=== PATIENT | male | born 1950 | race Caucasian/White ===

== ENCOUNTER 2020-10-31 17:12 | Inpatient (IN) | payer OTHER ==
[2020-10-31 17:24] VITALS: BMI 24.9
[2020-10-31] MEDS ORDERED: LORazepam 1 MG TABLET PO ONE (18:32)
[2020-10-31] MEDS ORDERED: THIAMINE HCL 100 MG TABLET (FP) PO ONE (18:33)
[2020-10-31] MEDS ORDERED: DIPHTH,PERTUSS(ACELL),TET 0.5 ML DISP.SYRIN IM ONE ×2 (18:33→19:35)
[2020-10-31] MEDS ORDERED: diazePAM CARPU-JECT 10 MG/2 ML DISP.SYRIN IVPUSH ONE (18:39)
[2020-10-31 19:28] LABS: BASO % 0.7 % (0-2.0); EOS % 0.1 % (0-4.5); HEMATOCRIT 39.8 % (35.4-49); HEMOGLOBIN 13.3 GM/dL (11.7-16.9); LYMPH % 7.6 % (8-40); MCH 33.6 pg (25.7-33.7); MCHC 33.3 g/dl (32.0-35.9); MEAN CELL VOLUME 100.8 fl (80-96); MONO % 12.7 % (3.8-10.2); NEUT % 78.9 % (42.8-82.8); RBC 3.95 M/mm3 (4.00-5.60); RDW 14.5 % (11.9-15.9); WHITE BLOOD COUNT 5.2 K/mm3 (4.0-10.0)
[2020-10-31] MEDS ORDERED: THIAMINE HCL 100 MG TABLET (FP) ONE (19:35)
[2020-10-31] MEDS ORDERED: diazePAM CARPU-JECT 10 MG/2 ML DISP.SYRIN ONE (19:35)
[2020-10-31 19:38] LABS: INR 0.94 (0.83-1.09); PROTHROMBIN TIME (PATIENT) 11.4 SEC (9.7-13.0)
[2020-10-31 19:40] LABS: ACTIVATED PTT 26.5 SECONDS (25.2-36.5)
[2020-10-31 19:46] LABS: CHLORIDE 96 mmol/L (98-107); SODIUM 133 mmol/L (136-145)
[2020-10-31 19:48] LABS: ALBUMIN 4.1 g/dl (3.4-5.0); ANION GAP 5 MMOL/L (8-16); BLOOD UREA NITROGEN 21.5 mg/dL (7-18); CALCIUM 10.1 mg/dL (8.5-10.1); CO2 32 mmol/L (21-32); GLUCOSE,RANDOM 101 mg/dL (74-106)
[2020-10-31 19:51] LABS: SGOT/AST 307 U/L (15-37); SGPT/ALT 154 U/L (13-61)
[2020-10-31 19:53] LABS: BILIRUBIN,TOTAL 2.8 mg/dL (0.2-1)
[2020-10-31 19:54] LABS: ALK PHOS 92 U/L (45-117)
[2020-10-31] MEDS ORDERED: chlordiazePOXIDE HCL 25 MG CAPSULE PO ONE (20:53)
[2020-10-31] MEDS ORDERED: chlordiazePOXIDE HCL 25 MG CAPSULE ONE (21:10)
[2020-10-31] MEDS ORDERED: LORazepam 2 MG/ML SDV VIAL IVPUSH ONE (22:45)
[2020-10-31] MEDS ORDERED: LORazepam 2 MG/ML SDV VIAL ONE (22:47)
[2020-11-01] MEDS ORDERED: LORazepam 2 MG/ML SDV VIAL IVPUSH ONE (00:39)
[2020-11-01] MEDS ORDERED: LORazepam 1 MG TABLET PO PRN ×2 (02:32→11:54)
[2020-11-01] MEDS ORDERED: FOLIC ACID INJECTION - 1 MG, THIAMINE HCL 100 MG, MULTIVIT INJECTION ADULT 10 ML in SOD... IVPB ONE (02:36)
[2020-11-01 04:25] LABS: EPI CELLS 10 /uL (0-25.1); HYALINE CASTS 3 /uL (0-3.1); URINE APPEARANCE CLEAR; URINE BILIRUBIN 2+ (NEGATIVE); URINE COLOR ORANGE; URINE GLUCOSE (UA) NEGATIVE (NEGATIVE); URINE KETONE 1+ (NEGATIVE); URINE LEUK ESTERASE 1+ (NEGATIVE); URINE NITRITE POSITIVE (NEGATIVE); URINE PROTEIN 1+ (NEGATIVE); URINE RBC 36 /uL (0-23.9); URINE WBC 4 /uL (0-25.8)
[2020-11-01 04:31] LABS: COCAINE, UR NEGATIVE ng/ml (CUTOFF=300); METHADONE, UR NEGATIVE ng/ml (CUTOFF=300); OPIATES, URI NEGATIVE ng/ml (CUTOFF=300); PHENCYCLIDINE,URINE NEGATIVE ng/ml (CUTOFF=25); URINE AMPHETAMINES NEGATIVE ng/ml (CUTOFF=500); URINE BARBITURATES NEGATIVE ng/ml (CUTOFF=200)
[2020-11-01 04:54] LABS: URINE BENZODIAZEPINES POSITIVE ng/ml (CUTOFF=200)
[2020-11-01] MEDS ORDERED: LORazepam 1 MG TABLET PO SCH (05:00)
[2020-11-01 06:54] LABS: BASO % 1.2 % (0-2.0); EOS % 0.7 % (0-4.5); HEMATOCRIT 37.1 % (35.4-49); HEMOGLOBIN 12.6 GM/dL (11.7-16.9); LYMPH % 15.5 % (8-40); MCH 33.9 pg (25.7-33.7); MEAN CELL VOLUME 99.7 fl (80-96); NEUT % 66.6 % (42.8-82.8); PLATELET COUNT 64 K/MM3 (134-434); RBC 3.73 M/mm3 (4.00-5.60); RDW 14.4 % (11.9-15.9); WHITE BLOOD COUNT 4.6 K/mm3 (4.0-10.0)
[2020-11-01 07:14] LABS: ALBUMIN 3.7 g/dl (3.4-5.0); CALCIUM 9.3 mg/dL (8.5-10.1); MAGNESIUM 1.7 mg/dL (1.8-2.4)
[2020-11-01 07:18] LABS: CREATININE 0.7 mg/dL (0.55-1.3)
[2020-11-01 07:19] LABS: BILIRUBIN,TOTAL 2.5 mg/dL (0.2-1); PHOSPHOROUS 2.4 mg/dL (2.5-4.9); TOT PROT 7.2 g/dl (6.4-8.2)
[2020-11-01] MEDS ORDERED: THIAMINE HCL 200 MG/2 ML VIAL ONE (11:44)
[2020-11-01] MEDS ORDERED: LORazepam 2 MG/ML SDV VIAL ONE (11:45)
[2020-11-01] MEDS ORDERED: FAMOTIDINE 20 MG/50 ML IVPB 20 MG/50 ML MG IVPB ONE ×2 (12:00→16:45)
[2020-11-01] MEDS ORDERED: ONDANSETRON 4 MG/2 ML VIAL IM PRN (12:01)
[2020-11-01] MEDS: LORazepam 2 MG/ML SDV VIAL IVPUSH PRN (12:52)
[2020-11-01] MEDS: SODIUM CHLORIDE 1,000 ML IV SCH (14:00)
[2020-11-01] MEDS: THIAMINE HCL 200 MG/2 ML VIAL IVPB SCH (16:41)
[2020-11-01] MEDS: FOLIC ACID 1 MG TABLET (FP) PO SCH (16:41)
[2020-11-01] MEDS: LORazepam 1 MG TABLET PO SCH ×2 (18:02→22:24)
[2020-11-02] MEDS ORDERED: LORazepam 1 MG TABLET PO SCH (05:00)
[2020-11-02] MEDS: LORazepam 1 MG TABLET PO SCH ×4 (05:11→23:33)
[2020-11-02] MEDS ORDERED: POTASSIUM CHLORIDE ORAL LIQUID 20 MEQ/15 ML PO ONE (08:30)
[2020-11-02] MEDS ORDERED: SODIUM PHOSPHATE - 15 MM in SODIUM CHLORIDE 250 ML IVPB ONE (09:00)
[2020-11-02] MEDS: FOLIC ACID 1 MG TABLET (FP) PO SCH (10:42)
[2020-11-02] MEDS: THIAMINE HCL 200 MG/2 ML VIAL IVPB SCH (10:43)
[2020-11-02 19:59] LABS: BASO % 1.8 % (0-2.0); EOS % 3.7 % (0-4.5); HEMATOCRIT 34.5 % (35.4-49); HEMOGLOBIN 11.5 GM/dL (11.7-16.9); LYMPH % 17.3 % (8-40); MCH 33.5 pg (25.7-33.7); MCHC 33.2 g/dl (32.0-35.9); MEAN PLT VOLUME 10.9 fl (7.5-11.1); MONO % 17.9 % (3.8-10.2); NEUT % 59.3 % (42.8-82.8); PLATELET COUNT 68 K/MM3 (134-434); RBC 3.42 M/mm3 (4.00-5.60); WHITE BLOOD COUNT 4.2 K/mm3 (4.0-10.0)
[2020-11-02 20:07] LABS: HEP B CORE AB, TOT Negative (Negative)
[2020-11-02 20:18] LABS: CALCIUM 8.1 mg/dL (8.5-10.1)
[2020-11-02 20:19] LABS: BLOOD UREA NITROGEN 15.2 mg/dL (7-18); MAGNESIUM 1.7 mg/dL (1.8-2.4)
[2020-11-02 20:21] LABS: PHOSPHOROUS 4.3 mg/dL (2.5-4.9)
[2020-11-02 20:22] LABS: CREATININE 0.5 mg/dL (0.55-1.3)
[2020-11-02 20:23] LABS: TOT PROT 6.1 g/dl (6.4-8.2)
[2020-11-02 20:26] LABS: BILIRUBIN,TOTAL 1.1 mg/dL (0.2-1)
[2020-11-02] MEDS ORDERED: MAGNESIUM SULF 50% (8.12 MEQ/2 ML-1 GM VIAL) IVPB ONE (21:49)
[2020-11-02] MEDS: KCL 10 MEQ IVPB 10 MEQ/100 ML INFUS.BAG IVPB SCH ×2 (22:03→23:04)
[2020-11-03] MEDS ORDERED: LORazepam 0.5 MG TABLET PO PRN
[2020-11-03] MEDS: LORazepam 2 MG/ML SDV VIAL IVPUSH PRN (03:43)
[2020-11-03] MEDS ORDERED: LORazepam 0.5 MG TABLET PO SCH (05:00)
[2020-11-03] MEDS: LORazepam 1 MG TABLET PO SCH ×4 (06:14→22:04)
[2020-11-03] MEDS: SODIUM CHLORIDE 1,000 ML IV SCH (09:13)
[2020-11-03 09:23] LABS: BASO % 1.4 % (0-2.0); EOS % 2.5 % (0-4.5); HEMATOCRIT 35.9 % (35.4-49); HEMOGLOBIN 12.1 GM/dL (11.7-16.9); MCH 34.2 pg (25.7-33.7); MCHC 33.8 g/dl (32.0-35.9); MEAN CELL VOLUME 101.1 fl (80-96); MEAN PLT VOLUME 10.7 fl (7.5-11.1); MONO % 18.8 % (3.8-10.2); NEUT % 60.3 % (42.8-82.8); PLATELET COUNT 76 K/MM3 (134-434); RBC 3.55 M/mm3 (4.00-5.60); RDW 13.7 % (11.9-15.9); WHITE BLOOD COUNT 4.3 K/mm3 (4.0-10.0)
[2020-11-03] MEDS: THIAMINE HCL 200 MG/2 ML VIAL IVPB SCH (09:32)
[2020-11-03 10:30] LABS: ALBUMIN 3.1 g/dl (3.4-5.0); BLOOD UREA NITROGEN 8.6 mg/dL (7-18); CALCIUM 8.1 mg/dL (8.5-10.1)
[2020-11-03 10:32] LABS: CREATININE 0.5 mg/dL (0.55-1.3)
[2020-11-03 10:33] LABS: PHOSPHOROUS 3.1 mg/dL (2.5-4.9)
[2020-11-03 10:35] LABS: BILIRUBIN,TOTAL 1.6 mg/dL (0.2-1); TOT PROT 6.3 g/dl (6.4-8.2)
[2020-11-03] MEDS ORDERED: POTASSIUM CHLORIDE TABS 10 MEQ TABLET.ER (FP) PO ONE (21:51)
[2020-11-04] MEDS ORDERED: LORazepam 0.5 MG TABLET PO PRN
[2020-11-04] MEDS: LORazepam 0.5 MG TABLET PO SCH ×3 (04:35→19:20)
[2020-11-04] MEDS ORDERED: LORazepam 0.5 MG TABLET PO ONE (05:00)
[2020-11-04 08:27] LABS: HEMATOCRIT 37.6 % (35.4-49); HEMOGLOBIN 12.7 GM/dL (11.7-16.9); MCHC 33.7 g/dl (32.0-35.9); MEAN CELL VOLUME 100.7 fl (80-96); MEAN PLT VOLUME 10.7 fl (7.5-11.1); PLATELET COUNT 93 K/MM3 (134-434); RBC 3.73 M/mm3 (4.00-5.60); RDW 13.6 % (11.9-15.9); WHITE BLOOD COUNT 6.4 K/mm3 (4.0-10.0)
[2020-11-04 08:52] LABS: ALBUMIN 3.2 g/dl (3.4-5.0); BLOOD UREA NITROGEN 8.8 mg/dL (7-18); CALCIUM 8.6 mg/dL (8.5-10.1)
[2020-11-04 08:53] LABS: BILIRUBIN,TOTAL 1.5 mg/dL (0.2-1); TOT PROT 6.7 g/dl (6.4-8.2)
[2020-11-04 08:55] LABS: CREATININE 0.5 mg/dL (0.55-1.3)
[2020-11-04] MEDS: THIAMINE HCL 100 MG TABLET (FP) PO SCH (10:03)
[2020-11-04] MEDS: MINERAL OIL/PET HY-PHL TOPICAL OINTMENT 454 GM JAR TP SCH (15:45)
[2020-11-05] MEDS: LORazepam 0.5 MG TABLET PO SCH (00:57)
[2020-11-05] MEDS ORDERED: LORazepam 0.5 MG TABLET PO ONE ×2 (05:00→09:15)
[2020-11-05 07:54] LABS: HEMATOCRIT 36.9 % (35.4-49); HEMOGLOBIN 12.5 GM/dL (11.7-16.9); MCH 34.1 pg (25.7-33.7); MEAN CELL VOLUME 100.5 fl (80-96); MEAN PLT VOLUME 10.7 fl (7.5-11.1); PLATELET COUNT 103 K/MM3 (134-434); RBC 3.67 M/mm3 (4.00-5.60); RDW 13.5 % (11.9-15.9); WHITE BLOOD COUNT 5.7 K/mm3 (4.0-10.0)
[2020-11-05 08:20] LABS: ALBUMIN 3.2 g/dl (3.4-5.0); BILIRUBIN,TOTAL 1.8 mg/dL (0.2-1); BLOOD UREA NITROGEN 11.2 mg/dL (7-18); CALCIUM 8.4 mg/dL (8.5-10.1); CREATININE 0.5 mg/dL (0.55-1.3); TOT PROT 6.8 g/dl (6.4-8.2)
[2020-11-05] MEDS ORDERED: POTASSIUM CHLORIDE TABS 20 MEQ TABLET.ER (FP) PO ONE (08:28)
[2020-11-05] MEDS: THIAMINE HCL 100 MG TABLET (FP) PO SCH (09:24)
[2020-11-05] MEDS: MINERAL OIL/PET HY-PHL TOPICAL OINTMENT 454 GM JAR TP SCH (15:21)
[2020-11-05 16:45] LABS: ALBUMIN 3.1 g/dl (3.4-5.0); CALCIUM 8.6 mg/dL (8.5-10.1)
[2020-11-05 16:49] LABS: CREATININE 0.6 mg/dL (0.55-1.3)
[2020-11-05 16:51] LABS: BILIRUBIN,TOTAL 1.4 mg/dL (0.2-1); TOT PROT 6.6 g/dl (6.4-8.2)
[2020-11-05] MEDS ORDERED: PT OWN MED DRAWER 7, Y5N ONE (22:19)
[2020-11-06] MEDS ORDERED: PT OWN MED DRAWER 7, Y5N ONE ×2 (09:11→23:51)
[2020-11-06] MEDS: THIAMINE HCL 100 MG TABLET (FP) PO SCH (09:15)
[2020-11-06] MEDS: MINERAL OIL/PET HY-PHL TOPICAL OINTMENT 454 GM JAR TP SCH (09:16)
[2020-11-06] MEDS: PSYLLIUM 5.85 GM PACKET PO SCH (09:16)
[2020-11-06 10:00] LABS: HEMATOCRIT 37.6 % (35.4-49); HEMOGLOBIN 12.6 GM/dL (11.7-16.9); MCH 34.2 pg (25.7-33.7); MCHC 33.6 g/dl (32.0-35.9); MEAN CELL VOLUME 101.6 fl (80-96); MEAN PLT VOLUME 10.7 fl (7.5-11.1); PLATELET COUNT 129 K/MM3 (134-434); RDW 13.1 % (11.9-15.9); WHITE BLOOD COUNT 3.9 K/mm3 (4.0-10.0)
[2020-11-06 10:40] LABS: ALBUMIN 3.2 g/dl (3.4-5.0); BLOOD UREA NITROGEN 10.3 mg/dL (7-18); CALCIUM 8.9 mg/dL (8.5-10.1)
[2020-11-06 10:43] LABS: CREATININE 0.5 mg/dL (0.55-1.3)
[2020-11-06 10:45] LABS: BILIRUBIN,TOTAL 1.7 mg/dL (0.2-1); TOT PROT 6.8 g/dl (6.4-8.2)
[2020-11-07] MEDS ORDERED: PT OWN MED DRAWER 7, Y5N ONE (09:02)
[2020-11-07] MEDS: THIAMINE HCL 100 MG TABLET (FP) PO SCH (09:06)
[2020-11-07] MEDS: PSYLLIUM 5.85 GM PACKET PO SCH (09:06)
[2020-11-07] MEDS: MINERAL OIL/PET HY-PHL TOPICAL OINTMENT 454 GM JAR TP SCH (09:08)
[2020-11-07 09:41] LABS: HEMATOCRIT 36.3 % (35.4-49); HEMOGLOBIN 12.3 GM/dL (11.7-16.9); MCH 34.1 pg (25.7-33.7); MCHC 33.9 g/dl (32.0-35.9); MEAN CELL VOLUME 100.3 fl (80-96); MEAN PLT VOLUME 10.7 fl (7.5-11.1); PLATELET COUNT 161 K/MM3 (134-434); RBC 3.62 M/mm3 (4.00-5.60); RDW 13.2 % (11.9-15.9)
[2020-11-07 10:13] LABS: ALBUMIN 3.1 g/dl (3.4-5.0); BLOOD UREA NITROGEN 12.3 mg/dL (7-18)
[2020-11-07 10:17] LABS: CREATININE 0.5 mg/dL (0.55-1.3)
[2020-11-07 10:18] LABS: BILIRUBIN,TOTAL 1.6 mg/dL (0.2-1); TOT PROT 6.7 g/dl (6.4-8.2)
[2020-11-07] MEDS: SODIUM CHLORIDE 0.45% 1,000 ML IV SCH ×2 (12:16→22:25)
[2020-11-08 08:57] LABS: BASO % 2.7 % (0-2.0); EOS % 4.4 % (0-4.5); HEMATOCRIT 37.2 % (35.4-49); HEMOGLOBIN 12.8 GM/dL (11.7-16.9); LYMPH % 20.6 % (8-40); MCH 33.8 pg (25.7-33.7); MCHC 34.3 g/dl (32.0-35.9); MEAN CELL VOLUME 98.6 fl (80-96); MEAN PLT VOLUME 10.1 fl (7.5-11.1); MONO % 16.9 % (3.8-10.2); NEUT % 55.4 % (42.8-82.8); PLATELET COUNT 190 K/MM3 (134-434); RBC 3.77 M/mm3 (4.00-5.60); RDW 13.1 % (11.9-15.9); WHITE BLOOD COUNT 4.5 K/mm3 (4.0-10.0)
[2020-11-08] MEDS ORDERED: PT OWN MED DRAWER 7, Y5N ONE (08:57)
[2020-11-08 09:27] LABS: BILIRUBIN,DIRECT 0.5 mg/dL (0.0-0.2)
[2020-11-08 09:29] LABS: BILIRUBIN,TOTAL 0.8 mg/dL (0.2-1); CALCIUM 8.8 mg/dL (8.5-10.1); TOT PROT 6.5 g/dl (6.4-8.2)
[2020-11-08 09:30] LABS: ALBUMIN 3.1 g/dl (3.4-5.0); BLOOD UREA NITROGEN 12.1 mg/dL (7-18); MAGNESIUM 1.8 mg/dL (1.8-2.4)
[2020-11-08 09:33] LABS: CREATININE 0.5 mg/dL (0.55-1.3); PHOSPHOROUS 4.2 mg/dL (2.5-4.9)
[2020-11-08 09:35] LABS: BILIRUBIN,TOTAL 1.1 mg/dL (0.2-1); TOT PROT 6.6 g/dl (6.4-8.2)
[2020-11-08] MEDS: THIAMINE HCL 100 MG TABLET (FP) PO SCH (10:24)
[2020-11-08] MEDS: MINERAL OIL/PET HY-PHL TOPICAL OINTMENT 454 GM JAR TP SCH (10:25)
[2020-11-08] MEDS: PSYLLIUM 5.85 GM PACKET PO SCH (10:25)
[2020-11-08] MEDS: SODIUM CHLORIDE 0.45% 1,000 ML IV SCH (12:01)
[2020-11-08] MEDS: amLODIPine BESYLATE 5 MG TABLET (FP) PO SCH (12:03)
[2020-11-08] MEDS ORDERED: MAGNESIUM OXIDE 400 MG TABLET (FP) PO ONE (12:47)
[2020-11-08] MEDS: HEPARIN NA (PORCINE) 5,000 UNITS/ML 1ML VIAL SQ SCH ×2 (15:06→21:11)
[2020-11-09] MEDS: HEPARIN NA (PORCINE) 5,000 UNITS/ML 1ML VIAL SQ SCH ×3 (06:46→21:49)
[2020-11-09 08:35] LABS: BASO % 3.7 % (0-2.0); EOS % 4.2 % (0-4.5); HEMATOCRIT 36.6 % (35.4-49); HEMOGLOBIN 12.5 GM/dL (11.7-16.9); LYMPH % 23.8 % (8-40); MCH 33.9 pg (25.7-33.7); MEAN CELL VOLUME 99.7 fl (80-96); MEAN PLT VOLUME 10.4 fl (7.5-11.1); MONO % 15.6 % (3.8-10.2); NEUT % 52.7 % (42.8-82.8); PLATELET COUNT 205 K/MM3 (134-434); RBC 3.67 M/mm3 (4.00-5.60); RDW 13.3 % (11.9-15.9)
[2020-11-09] MEDS ORDERED: PT OWN MED DRAWER 7, Y5N ONE (08:55)
[2020-11-09 08:56] LABS: ALBUMIN 3.1 g/dl (3.4-5.0); BLOOD UREA NITROGEN 13.2 mg/dL (7-18); CALCIUM 9.3 mg/dL (8.5-10.1); MAGNESIUM 1.9 mg/dL (1.8-2.4)
[2020-11-09 08:59] LABS: CREATININE 0.5 mg/dL (0.55-1.3)
[2020-11-09 09:00] LABS: BILIRUBIN,TOTAL 0.9 mg/dL (0.2-1); PHOSPHOROUS 4.5 mg/dL (2.5-4.9); TOT PROT 6.7 g/dl (6.4-8.2)
[2020-11-09 09:01] LABS: IRON SERUM 52 ug/dL (50-175)
[2020-11-09 09:02] LABS: TOTAL IRON BINDING CAPACITY 245 ug/dL (250-450)
[2020-11-09] MEDS: amLODIPine BESYLATE 5 MG TABLET (FP) PO SCH (09:07)
[2020-11-09] MEDS: THIAMINE HCL 100 MG TABLET (FP) PO SCH (09:07)
[2020-11-09] MEDS: MINERAL OIL/PET HY-PHL TOPICAL OINTMENT 454 GM JAR TP SCH (09:08)
[2020-11-09] MEDS: PSYLLIUM 5.85 GM PACKET PO SCH (09:08)
[2020-11-09 16:07] LABS: GLIADIN ANTIBODY IGA 4 units (0-19); GLIADIN ANTIBODY IGG 2 units (0-19); TRANSGLUTAMINASE IGG < 2 U/mL (0-5)
[2020-11-09 20:07] LABS: HEP B CORE AB, TOT Negative (Negative)
[2020-11-10] MEDS: HEPARIN NA (PORCINE) 5,000 UNITS/ML 1ML VIAL SQ SCH ×2 (05:33→14:29)
[2020-11-10 07:29] VITALS: PULSE 78
[2020-11-10 09:11] LABS: BASO % 4.5 % (0-2.0); EOS % 4.2 % (0-4.5); HEMATOCRIT 36.7 % (35.4-49); HEMOGLOBIN 12.4 GM/dL (11.7-16.9); LYMPH % 22.3 % (8-40); MCH 33.8 pg (25.7-33.7); MCHC 33.8 g/dl (32.0-35.9); MEAN CELL VOLUME 99.8 fl (80-96); MEAN PLT VOLUME 10.8 fl (7.5-11.1); MONO % 14.4 % (3.8-10.2); NEUT % 54.6 % (42.8-82.8); PLATELET COUNT 215 K/MM3 (134-434); RBC 3.68 M/mm3 (4.00-5.60); RDW 13.2 % (11.9-15.9); WHITE BLOOD COUNT 5.4 K/mm3 (4.0-10.0)
[2020-11-10 09:54] LABS: BLOOD UREA NITROGEN 11.8 mg/dL (7-18)
[2020-11-10 09:55] LABS: TOT PROT 6.6 g/dl (6.4-8.2)
[2020-11-10 09:58] LABS: CREATININE 0.5 mg/dL (0.55-1.3)
[2020-11-10 10:00] LABS: PHOSPHOROUS 4.4 mg/dL (2.5-4.9)
[2020-11-10 10:05] LABS: CALCIUM 8.8 mg/dL (8.5-10.1)
[2020-11-10 10:10] LABS: MAGNESIUM 1.9 mg/dL (1.8-2.4)
[2020-11-10] MEDS ORDERED: PT OWN MED DRAWER 7, Y5N ONE (11:27)
[2020-11-10] MEDS: THIAMINE HCL 100 MG TABLET (FP) PO SCH (11:33)
[2020-11-10] MEDS: amLODIPine BESYLATE 5 MG TABLET (FP) PO SCH (11:33)
[2020-11-10] MEDS: PSYLLIUM 5.85 GM PACKET PO SCH (11:34)
[2020-11-10] MEDS: MINERAL OIL/PET HY-PHL TOPICAL OINTMENT 454 GM JAR TP SCH (11:34)
[2020-11-10 15:58] VITALS: BP 152/78; TEMP 98.4
== END 2020-11-10 16:00 | disposition home or self-care (01) | DRG 775 ==
LOC: JER 17:12 → JERBED 22:42 → J8W 11-01 12:35
PROVIDERS: ADMIT Internal Medicine; ATTEND Internal Medicine
PROC: HZ2ZZZZ Detoxification Services for Substance Abuse Treatment (ICD-10-PCS; principal; 2020-11-01)
DX: F10.230 Alcohol dependence with withdrawal, uncomplicated (principal); G93.41 Metabolic encephalopathy; D64.9 Anemia, unspecified; R74.01 Elevation of levels of liver transaminase levels; K70.10 Alcoholic hepatitis without ascites; E83.39 Other disorders of phosphorus metabolism; E87.1 Hypo-osmolality and hyponatremia; I10 Essential (primary) hypertension
CPT/HCPCS: 36415; 70450-TC; 72125-TC; 73630-TC-LT; 74181-TC; 76700-TC; 80053; 80074; 80076; 80307; 81003; 82140; 82550; 82607; 82728; 82746; 82784; 83516; 83540; 83550; 83735; 84100; 84443; 84484; 85025; 85027; 85610; 85730; 86038; 86704; 86706; 86707; 86708; 86709; 86803; 87086; 87340; 90715; 93005; 93010; 97116-GP; 97162-GP; 99285-25; C9803; J1644; U0003